=== PATIENT | male | born 1965 | race Caucasian/White ===

== ENCOUNTER 2024-03-08 16:13 | Emergency (ER) | payer SELFPAY ==
[2024-03-08 16:15] VITALS: BP 163/97
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
== END 2024-03-08 18:36 | disposition home or self-care (01) ==
LOC: EMR 16:13
PROVIDERS: EMERGENCY PHYSICIAN Emergency Medicine; FAMILY PHYSICIAN Family Medicine
DX: S42.402A Unspecified fracture of lower end of left humerus, initial encounter for closed fracture (principal); S63.615A Unspecified sprain of left ring finger, initial encounter; S63.613A Unspecified sprain of left middle finger, initial encounter; V53.5XXA Driver of pick-up truck or van injured in collision with car, pick-up truck or van in traffic accident, initial encounter; Y92.410 Unspecified street and highway as the place of occurrence of the external cause; R03.0 Elevated blood-pressure reading, without diagnosis of hypertension; Z87.891 Personal history of nicotine dependence
CPT/HCPCS: 99283; 73080; 73130

== ENCOUNTER → 2024-03-21 15:36 | Outpatient (REF) | payer OTHER, SELFPAY | LOC: HWRAD 15:36 | PROVIDERS: ATTENDING PHYSICIAN Orthopaedic Surgery; FAMILY PHYSICIAN Family Medicine | DX: S52.045A Nondisplaced fracture of coronoid process of left ulna, initial encounter for closed fracture (principal) | CPT/HCPCS: 73200 ==